=== PATIENT | female | born 2005 | race African-American/Black ===

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

== ENCOUNTER 2024-08-22 19:45 | Emergency (ER) | payer MEDICARE ==
[~2024-08-22] VITALS: Ht 165.1 cm; Wt 49.0 kg
[2024-08-22 20:11] VITALS: O2SAT 99
[2024-08-22 20:44] LABS: CLARITY URINE CLOUDY (CLEAR); COLOR URINE YELLOW (YELLOW); GLUCOSE URINE NEGATIVE (NEGATIVE); KETONES URINE TRACE (NEGATIVE); LEUKOCYTE ESTERASE URINE 3+ (NEGATIVE); NITRITE URINE NEGATIVE (NEGATIVE); OCCULT BLOOD URINE NEGATIVE (NEGATIVE); PH URINE 6.5 (4.5-8.0); PROTEIN URINE TRACE (NEGATIVE); SPECIFIC GRAVITY URINE 1.036 (1.005-1.030)
[2024-08-22 21:21] LABS: BASOPHILS % 0.6 % (0.0-2.0); EOSINOPHILS % 1.8 % (0.0-5.0); HEMATOCRIT. 36.4 % (36.0-48.0); HEMOGLOBIN. 12.1 g/dL (12.0-16.0); LYMPHOCYTES % 32.8 % (20.0-50.0); MEAN CORPUSCULAR HEMOGLOBIN 29.9 pg (28.0-32.0); MEAN CORPUSCULAR HGB CONC 33.1 g/dL (31.0-37.0); MEAN CORPUSCULAR VOLUME 90.4 fL (81.0-99.0); MEAN PLATELET VOLUME 7.9 fl (7.4-10.4); MONOCYTES % 8.3 % (2.0-8.0); NEUTROPHILS % 56.5 % (40.0-76.0); PLATELET 281 x1000/uL (130-400); RED BLOOD CELL COUNT 4.03 mill/uL (4.2-5.4); RED CELL DISTRIBUTION WIDTH 13.2 % (11.6-14.6); WHITE BLOOD COUNT 9.6 x1000/uL (4.5-11.0)
[2024-08-22 21:24] LABS: CARBON DIOXIDE 27 mEq/L (21-32); CHLORIDE 102 mEq/L (98-107); POTASSIUM 3.9 mEq/L (3.5-5.1); SODIUM 138 mEq/L (136-145)
[2024-08-22 21:26] LABS: CALCIUM 9.9 mg/dL (8.7-10.4)
[2024-08-22 21:30] LABS: CREATININE 0.8 mg/dL (0.6-1.0); GLUCOSE 72 mg/dL (70-105); UREA NITROGEN BLOOD 11 mg/dL (9-23)
[2024-08-22 21:45] LABS: B-HCG QUANTITATIVE 8421 mIU/mL (<3)
[2024-08-22 21:51] LABS: BACTERIA URINE 3+; RBC URINE 0-2 /hpf (0-2); SQUAMOUS EPITHELIAL CELL URINE 2+ /lpf (RARE/1+)
[2024-08-22 21:52] LABS: WBC URINE 15-25 /hpf (0-2)
[2024-08-22] MEDS ORDERED: CEPH500C2 MT (22:31)
[2024-08-22] MEDS ORDERED: ACET-2708 MT (22:31)
[2024-08-22 22:52] VITALS: BP 114/70; PULSE 88; RESP 18; TEMP 37.1; O2SAT 99
== END 2024-08-22 22:52 | disposition home or self-care (01) ==
LOC: ER 19:45
DX: O23.41 Unspecified infection of urinary tract in pregnancy, first trimester (principal); Z3A.01 Less than 8 weeks gestation of pregnancy; Z79.899 Other long term (current) drug therapy
CPT/HCPCS: 36415; 80048; 81003; 84702; 85025; 99283